=== PATIENT | female | born 1975 | race Caucasian/White ===

== ENCOUNTER 2017-07-27 04:08 | Emergency (ER) | payer OTHER ==
[~2017-07-27] VITALS: Ht 177.8 cm; Wt 86.3 kg
[2017-07-27] MEDS ORDERED: MILLIPRED DP5 M1 PO (04:59)
[2017-07-27] MEDS ORDERED: ATARAX,VISTARIL50 MG PO (04:59)
[2017-07-27 05:11] VITALS: BP 152/103
== END 2017-07-27 05:13 | disposition home or self-care (01) ==
LOC: EME 04:08
DX: L30.9 Dermatitis, unspecified (principal)
CPT/HCPCS: 99281; 99284; J7512; Q0177

== ENCOUNTER 2018-05-23 12:16 | Emergency (ER) | payer OTHER ==
[~2018-05-23] VITALS: Ht 177.8 cm; Wt 81.5 kg
[~2018-05-23 12:16] MED LIST: ATARAX,VISTARIL50 MG PO; MILLIPRED DP5 M1 PO
[2018-05-23 12:56] LABS: HEMATOCRIT 40.6 % (36.0-46.0); HEMOGLOBIN 13.7 G/DL (11.9-15.5); MCH 30.3 PG (29.0-34.0); MCHC 33.7 G/DL (30.0-36.0); MCV 89.8 FL (83-99); PLATELET COUNT 320 K/uL (156-360); RBC DIS.WIDTH-SD 39.6 % (39-53); RED BLOOD COUNT 4.52 M/uL (3.80-5.20); WHITE BLOOD COUNT 11.7 K/uL (4.1-10.2)
[2018-05-23 13:06] LABS: CHLORIDE 104 mEq/L (99-109); POTASSIUM 4.1 mEq/L (3.7-5.4); SODIUM 139 mEq/L (136-147)
[2018-05-23 13:08] LABS: GLUCOSE 92 mg/dL (70-99)
[2018-05-23 13:12] LABS: CREATININE 0.8 mg/dL (0.6-1.3); GFR ESTIMATE (CALCULATED) > 59 mL/min/
[2018-05-23 13:13] LABS: UREA NITROGEN (BUN) 13 mg/dL (9-23)
[2018-05-23 13:20] LABS: TROP-I INTERPRETATION NEGATIVE; TROPONIN-I < 0.01 ng/mL (0.0-0.30)
[2018-05-23 17:00] VITALS: BP 167/97
== END 2018-05-23 17:00 | disposition home or self-care (01) ==
LOC: EME 12:16
DX: I10 Essential (primary) hypertension (principal); R51 Headache
CPT/HCPCS: 70450; 71046; 80048; 84484; 85027; 93005; 99281; 99285